=== PATIENT | female | born 2000 | race Caucasian/White ===

== ENCOUNTER → 2022-11-23 | Outpatient (CLI) | payer OTHER ==
[2022-11-23 15:50] LABS: HEMATOCRIT 41.3 % (36.0-47.0); HEMOGLOBIN 13.6 g/dl (12.0-15.5); MEAN CORPUSCULAR HEMOGLOBIN 28.3 pg (27.0-33.0); MEAN CORPUSCULAR HGB CONC 32.9 g/dl (32.0-36.5); PLATELET COUNT, AUTOMATED 304 10^3/uL (150-450); WHITE BLOOD COUNT 7.2 10^3/uL (4.0-10.0)
[2022-11-23 16:02] LABS: HEMOGLOBIN A1c 4.7 % (4.0-6.0)
[2022-11-23 16:21] LABS: VITAMIN B12 LEVEL 435 PG/ML (211-911)
[2022-11-23 16:51] LABS: HIV 1&2 SCREEN CENTAUR NEGATIVE (NEGATIVE)
[2022-11-23 16:59] LABS: HEPATITIS C VIRUS ABY INDEX 0.1 INDEX (<0.8)
[2022-11-23 17:27] LABS: GC DNA AMPLIFICATION NEGATIVE (NEGATIVE)
== END ==
LOC: M PLALAB 14:35
PROVIDERS: ATTEND Advanced Practice Midwife
DX: Z34.01 Encounter for supervision of normal first pregnancy, first trimester (principal)

== ENCOUNTER → 2022-12-21 | Outpatient (CLI) | payer OTHER | LOC: M PLALAB 13:44 | PROVIDERS: ATTEND Advanced Practice Midwife | DX: Z34.01 Encounter for supervision of normal first pregnancy, first trimester (principal) | CPT/HCPCS: 36415; G0463 ==

== ENCOUNTER 2023-02-13 12:12 | Emergency (ER) | payer OTHER ==
[~2023-02-13] VITALS: Ht 170.2 cm; Wt 104.7 kg
[2023-02-13 12:14] VITALS: BP 136/75; TEMP 98.4; O2SAT 98
[2023-02-13] MEDS ORDERED: MULTTAB20 PO (12:25)
[2023-02-13 13:21] LABS: BASO % 0.3 % (0.0-1.0); EOS # 0.1 10^3/uL (0.0-0.5); EOS % 0.8 % (0.0-3.0); HEMATOCRIT 38.7 % (36.0-47.0); HEMOGLOBIN 12.9 g/dl (12.0-15.5); LYMPH # 1.7 10^3/uL (1.5-5.0); LYMPH % 23.1 % (24.0-44.0); MEAN CORPUSCULAR HEMOGLOBIN 28.2 pg (27.0-33.0); MEAN CORPUSCULAR HGB CONC 33.3 g/dl (32.0-36.5); MEAN CORPUSCULAR VOLUME 84.5 fl (80.0-96.0); MONO # 0.5 10^3/uL (0.0-0.8); MONO % 6.6 % (2.0-8.0); NEUTROPHILS % 68.9 % (36.0-66.0); PLATELET COUNT, AUTOMATED 252 10^3/uL (150-450); RED BLOOD COUNT 4.58 10^6/uL (4.00-5.40); WHITE BLOOD COUNT 7.2 10^3/uL (4.0-10.0)
[2023-02-13 13:27] LABS: APPEARANCE, URINE MANUAL CLEAR (CLEAR); COLOR, URINE MANUAL YELLOW (YELLOW)
[2023-02-13 13:28] LABS: PH,URINE MAN 6.5 UNITS (5.0 - 7.0)
[2023-02-13 13:29] LABS: BILIRUBIN, URINE MANUAL NEGATIVE (NEGATIVE); BLOOD URINE MANUAL NEGATIVE (NEGATIVE); GLUCOSE, URINE (UA) MANUAL NEGATIVE (NEGATIVE); KETONE, URINE MANUAL NEGATIVE (NEGATIVE); LEUKOCYTE ESTERASE, URINE MAN NEGATIVE (NEGATIVE); NITRITE, URINE MANUAL NEGATIVE (NEGATIVE); PROTEIN, URINE MANUAL NEGATIVE (NEGATIVE); UROBILINOGEN, URINE MANUAL NORMAL (NORMAL)
[2023-02-13 13:55] LABS: ALBUMIN 3.4 G/DL (3.2-5.2); ALKALINE PHOSPHATASE 53 U/L (46-116); ALT/SGPT 11 U/L (7.0-40); AST/SGOT 10 U/L (<34); BILIRUBIN,DIRECT 0.1 MG/DL (<0.4); BILIRUBIN,TOTAL 0.5 MG/DL (0.3-1.2); BLOOD UREA NITROGEN 5 MG/DL (9-23); CALCIUM LEVEL 9.3 MG/DL (8.5-10.1); CARBON DIOXIDE LEVEL 23 MMOL/L (20-31); CHLORIDE LEVEL 106 MMOL/L (98-107); CREATININE FOR GFR 0.41 MG/DL (0.55-1.30); GLUCOSE, FASTING 75 MG/DL (60-100); SODIUM LEVEL 138 MMOL/L (136-145); TOTAL PROTEIN 6.7 G/DL (5.7-8.2)
== END 2023-02-13 15:53 | disposition home or self-care (01) ==
LOC: M ED 12:12
DX: O26.832 Pregnancy related renal disease, second trimester (principal); N13.30 Unspecified hydronephrosis; Z88.0 Allergy status to penicillin; Z98.84 Bariatric surgery status; Z3A.19 19 weeks gestation of pregnancy; Z79.810 Long term (current) use of selective estrogen receptor modulators (SERMs)

== ENCOUNTER → 2023-02-16 | Outpatient (CLI) | payer OTHER ==
[~2023-02-16] MED LIST: MULTTAB20 PO
== END ==
LOC: M WHC 15:03
PROVIDERS: ATTEND Advanced Practice Midwife
DX: Z34.02 Encounter for supervision of normal first pregnancy, second trimester (principal); Z3A.19 19 weeks gestation of pregnancy

== ENCOUNTER 2023-03-01 12:40 | Outpatient (CLI) | payer OTHER ==
[~2023-03-01] VITALS: Ht 170.2 cm; Wt 104.4 kg
[2023-03-01 12:59] VITALS: BP 132/59
[2023-03-01] MEDS ORDERED: HOME MED LIST COMPLETE! XX SCH (13:05)
[2023-03-01] MEDS ORDERED: LR 1,000 ML IV ONE (13:10)
[2023-03-01 14:00] LABS: AMORPHOUS SEDIMENT SMALL (NEGATIVE); APPEARANCE, URINE CLOUDY (CLEAR); BACTERIA, URINE AUTO 1+ (NEGATIVE); BILIRUBIN, URINE AUTO NEGATIVE (NEGATIVE); BLOOD, URINE BLOOD NEGATIVE (NEGATIVE); CALCIUM OXALATE CRYSTALS LARGE; COLOR, URINE AMBER (YELLOW); GLUCOSE, URINE (UA) AUTO NEGATIVE (NEGATIVE); KETONE, URINE AUTO 1+ mg/dL (NEGATIVE); LEUKOCYTE ESTERASE, URINE AUTO TRACE (NEGATIVE); MUCUS, URINE LARGE (NEGATIVE); NITRITE, URINE AUTO NEGATIVE (NEGATIVE); PROTEIN, URINE AUTO NEGATIVE (NEGATIVE); RBC, URINE AUTO 0 /HPF (0-3); SQUAMOUS EPITHELIAL CELL UR AU 5 /HPF (0-6); WBC, URINE AUTO 1 /HPF (0-3)
[2023-03-01 14:02] LABS: HEMATOCRIT 40.4 % (36.0-47.0); HEMOGLOBIN 13.6 g/dl (12.0-15.5); MEAN CORPUSCULAR HEMOGLOBIN 28.8 pg (27.0-33.0); MEAN CORPUSCULAR HGB CONC 33.7 g/dl (32.0-36.5); MEAN CORPUSCULAR VOLUME 85.4 fl (80.0-96.0); PLATELET COUNT, AUTOMATED 246 10^3/uL (150-450); RED BLOOD COUNT 4.73 10^6/uL (4.00-5.40); WHITE BLOOD COUNT 7.3 10^3/uL (4.0-10.0)
[2023-03-01 14:27] LABS: AMYLASE 61 U/L (30-118)
[2023-03-01 14:38] VITALS: BP 137/58
[2023-03-01 14:42] LABS: ALBUMIN 3.7 G/DL (3.2-5.2); ALKALINE PHOSPHATASE 55 U/L (46-116); ALT/SGPT 14 U/L (7.0-40); AST/SGOT 55 U/L (<34); BILIRUBIN,TOTAL 0.5 MG/DL (0.3-1.2); BLOOD UREA NITROGEN 5 MG/DL (9-23); CARBON DIOXIDE LEVEL 23 MMOL/L (20-31); CHLORIDE LEVEL 104 MMOL/L (98-107); CREATININE FOR GFR 0.47 MG/DL (0.55-1.30); GLUCOSE, FASTING 71 MG/DL (60-100); LIPASE 35 U/L (12-53); POTASSIUM SERUM 5.6 MMOL/L (3.5-5.1); SODIUM LEVEL 135 MMOL/L (136-145); TOTAL PROTEIN 7.3 G/DL (5.7-8.2)
[2023-03-01] MEDS ORDERED: ONDA4TAB6 PO (16:38)
== END 2023-03-01 16:43 | disposition home or self-care (01) ==
LOC: M LDO 12:40
PROVIDERS: ATTEND Obstetrics & Gynecology
DX: O21.8 Other vomiting complicating pregnancy (principal); O26.892 Other specified pregnancy related conditions, second trimester; R10.10 Upper abdominal pain, unspecified; Z3A.21 21 weeks gestation of pregnancy
CPT/HCPCS: 80053; 81001; 82150; 83690; 85027; G0463

== ENCOUNTER → 2023-04-07 | Outpatient (CLI) | payer OTHER ==
[~2023-04-07] MED LIST changes: +ONDA4TAB6 PO
[2023-04-07 18:33] LABS: HEMATOCRIT 38.6 % (36.0-47.0); HEMOGLOBIN 12.5 g/dl (12.0-15.5); MEAN CORPUSCULAR HEMOGLOBIN 28.7 pg (27.0-33.0); MEAN CORPUSCULAR HGB CONC 32.4 g/dl (32.0-36.5); MEAN CORPUSCULAR VOLUME 88.5 fl (80.0-96.0); PLATELET COUNT, AUTOMATED 266 10^3/uL (150-450); RED BLOOD COUNT 4.36 10^6/uL (4.00-5.40); WHITE BLOOD COUNT 8.8 10^3/uL (4.0-10.0)
[2023-04-07 19:52] LABS: GC DNA AMPLIFICATION NEGATIVE (NEGATIVE)
== END ==
LOC: M PLALAB 12:06
PROVIDERS: ATTEND Advanced Practice Midwife
DX: Z34.82 Encounter for supervision of other normal pregnancy, second trimester (principal)

== ENCOUNTER → 2023-04-14 | Outpatient (CLI) | payer OTHER | LOC: M WHC 14:56 | PROVIDERS: ATTEND Advanced Practice Midwife | DX: Z34.82 Encounter for supervision of other normal pregnancy, second trimester (principal) ==

== ENCOUNTER → 2023-05-20 | Outpatient (CLI) | payer OTHER | LOC: M WHC 11:59 | PROVIDERS: ATTEND Advanced Practice Midwife | DX: Z34.82 Encounter for supervision of other normal pregnancy, second trimester (principal); Z3A.00 Weeks of gestation of pregnancy not specified ==

== ENCOUNTER → 2023-06-14 | Outpatient (REF) | payer OTHER | LOC: M SFHCWAGY 13:05 | PROVIDERS: ATTEND Advanced Practice Midwife | DX: Z34.03 Encounter for supervision of normal first pregnancy, third trimester (principal) ==

== ENCOUNTER 2023-07-01 18:09 | Outpatient (CLI) | payer OTHER ==
[~2023-07-01] VITALS: Ht 167.6 cm; Wt 114.8 kg
[2023-07-01 18:25] VITALS: BP 117/62
[2023-07-01] MEDS ORDERED: HOME MED LIST COMPLETE! XX SCH (18:30)
== END 2023-07-01 19:10 | disposition home or self-care (01) ==
LOC: M LDO 18:09
PROVIDERS: ATTEND Advanced Practice Midwife
DX: O36.8130 Decreased fetal movements, third trimester, not applicable or unspecified (principal); Z3A.38 38 weeks gestation of pregnancy; Z88.0 Allergy status to penicillin; O99.843 Bariatric surgery status complicating pregnancy, third trimester
CPT/HCPCS: 59025; G0463

== ENCOUNTER 2023-07-04 15:15 | Inpatient (IN) | payer OTHER ==
[~2023-07-04] VITALS: Ht 170.2 cm; Wt 115.2 kg
[2023-07-04] VITALS (30 sets, daily range): BP systolic 104–156; BP diastolic 55–98
[2023-07-04] MEDS ORDERED: HOME MED LIST COMPLETE! XX SCH (16:25)
[2023-07-04] MEDS ORDERED: LACTATED RINGER'S 1000 ML IV STA (18:41)
[2023-07-04] MEDS ORDERED: METHYLERGONOVINE MALEATE 0.2MG/ML 1ML VIAL IM PRN (18:45)
[2023-07-04] MEDS ORDERED: TRANEXAMIC ACID INJection 1,000 MG in NS 100 ML IV PRN (18:45)
[2023-07-04] MEDS ORDERED: CARBOPROST TROMETHAMINE 250 MCG/ML AMP IM PRN (18:45)
[2023-07-04] MEDS ORDERED: LIDOCAINE 1% MDV 20ML VIAL INFIL PRN (18:45)
[2023-07-04] MEDS ORDERED: OXYTOCIN DRIP 30 UNITS in IV 1 EA IV PRN (18:45)
[2023-07-04] MEDS ORDERED: OXYTOCIN INJ 10UNITS/ML 1ML VIAL IM PRN (18:45)
[2023-07-04] MEDS ORDERED: ceFAZolin SOD 2 GM in IV 1 EA IV STA (18:53)
[2023-07-04 19:54] LABS: HEMOGLOBIN 13.2 g/dl (12.0-15.5); MEAN CORPUSCULAR HEMOGLOBIN 28.8 pg (27.0-33.0); MEAN CORPUSCULAR HGB CONC 33.8 g/dl (32.0-36.5); PLATELET COUNT, AUTOMATED 222 10^3/uL (150-450); RED BLOOD COUNT 4.59 10^6/uL (4.00-5.40); WHITE BLOOD COUNT 14.2 10^3/uL (4.0-10.0)
[2023-07-04] MEDS ORDERED: FENTANYL/ROPIVACAINE/NACL BAG 100 ML EPIDURAL SCH (20:10)
[2023-07-04] MEDS ORDERED: EPIDURAL/PCA KEYS XX PRN (20:10)
[2023-07-04] MEDS ORDERED: ONDANSETRON 4MG 2ML VIAL IV PRN (20:10)
[2023-07-04] MEDS ORDERED: LR 500 ML IV PRN (20:10)
[2023-07-04] MEDS ORDERED: NALOXONE INJ 0.4MG/1ML VIAL IV PRN (20:10)
[2023-07-04] MEDS ORDERED: diphenhydrAMINE 50MG/ML VIAL IV PRN (20:10)
[2023-07-04 20:20] LABS: URIC ACID 3.9 MG/DL (3.1-7.8)
[2023-07-04 20:22] LABS: LDH LACTATE DEHYDROGENASE 171 U/L (120-246)
[2023-07-04 20:23] LABS: ALT/SGPT 10 U/L (7.0-40); AST/SGOT 18 U/L (<34); BILIRUBIN,TOTAL 0.4 MG/DL (0.3-1.2)
[2023-07-04] MEDS ORDERED: OXYTOCIN DRIP 30 UNITS in IV 1 EA IV SCH (22:05)
[2023-07-04] MEDS ORDERED: LR 1,000 ML IV SCH (22:05)
[2023-07-04] MEDS: ePHEDrine SULFATE 25 MG/5 ML(5MG/ML) SYRINGE IVP PRN ×2 (22:51→22:57)
[2023-07-05] VITALS (17 sets, daily range): BP systolic 103–148; BP diastolic 57–86; TEMP 97.5; O2SAT 95–99
[2023-07-05] MEDS ORDERED: ceFAZolin SOD 2 GM in IV 1 EA IV ONE (00:35)
[2023-07-05] MEDS ORDERED: MORPHINE PRES-FREE INJ 10 MG/10 ML VIAL As Ordered ONE (00:39)
[2023-07-05] MEDS ORDERED: LIDOCAINE 2% W/EPINEPHRINE 20ML VIAL **PRES FREE As Ordered ONE (00:40)
[2023-07-05] MEDS ORDERED: OXYTOCIN 30UNITS IN 0.9% NaCl 500ML IV BAG As Ordered ONE ×2 (00:41→02:04)
[2023-07-05] MEDS ORDERED: AZITHROMYCIN INJ 500 MG, VIAL MATE ADAPTER 1 EACH in NS 250 ML IV ONE (01:00)
[2023-07-05] MEDS ORDERED: BICITRA 30ML SOLN UDC PO ONE (01:00)
[2023-07-05] MEDS ORDERED: fentaNYL 100 MCG/2 ML INJECTION As Ordered ONE (01:37)
[2023-07-05] MEDS ORDERED: KETAMINE HCL 200MG/20ML VIAL As Ordered ONE (01:37)
[2023-07-05] MEDS ORDERED: MIDAZOLAM INJ 2MG/2ML VIAL As Ordered ONE (01:37)
[2023-07-05] MEDS ORDERED: ONDANSETRON 4MG 2ML VIAL As Ordered ONE (01:50)
[2023-07-05] MEDS ORDERED: ACETAMINOPHEN 1000MG 100ML IV BAG As Ordered ONE (01:58)
[2023-07-05] MEDS ORDERED: KETOROLAC 60MG 2ML VIAL As Ordered ONE (01:58)
[2023-07-05 02:04] LABS: CORD GAS ABE V -8.3; CORD GAS HCO3 V 19.2 MMOL/L; CORD GAS O2 SAT V 57.4 %; CORD GAS PCO2 V 46.9 mmHg; CORD GAS PH V 7.23 UNITS; CORD GAS PO2 V 27.3 mmHg; CORD GAS TCO2 V 20.6 MMOL/L
[2023-07-05 02:06] LABS: CORD GAS ABE A -7.1; CORD GAS HCO3 A 21.9 MMOL/L; CORD GAS O2 SAT A 18.5 %; CORD GAS PCO2 A 58.4 mmHg; CORD GAS PH A 7.191 UNITS; CORD GAS PO2 A 12.9 mmHg; CORD GAS SBC A 17.1 MMOL/L; CORD GAS TCO2 A 23.6 MMOL/L
[2023-07-05] MEDS ORDERED: propofoL 200 MG/20 ML VIAL As Ordered ONE (02:11)
[2023-07-05] MEDS ORDERED: SIMETHICONE 80MG CHEW TAB PO PRN (03:15)
[2023-07-05] MEDS ORDERED: oxyCODONE 5MG TAB PO PRN ×2 (03:15)
[2023-07-05] MEDS ORDERED: RHOGAM 300MCG (1500IU) INJ IM SCH (03:15)
[2023-07-05] MEDS ORDERED: OXYTOCIN DRIP 30 UNITS in IV 1 EA IV SCH (03:15)
[2023-07-05] MEDS ORDERED: DOCUSATE SODIUM 100MG CAPSULE PO PRN (03:15)
[2023-07-05] MEDS ORDERED: ceFAZolin SOD 1 GM in D5W MINI-BAG PLUS 50 ML IV SCH (03:40)
[2023-07-05] MEDS: KETOROLAC 30 MG/ML 1ML VIAL IV SCH ×3 (07:31→20:01)
[2023-07-05] MEDS: ACETAMINOPHEN 500 MG TAB PO SCH ×3 (07:31→20:02)
[2023-07-05] MEDS: PRENATAL VITAMINS CHEWABLE TABLET PO SCH (07:32)
[2023-07-05] MEDS ORDERED: COLA100C5 PO (08:37)
[2023-07-05] MEDS ORDERED: ACET-683 PO (08:37)
[2023-07-05] MEDS ORDERED: OXYC-517 PO (08:37)
[2023-07-06 02:00] VITALS: BP 135/74; O2SAT 99
[2023-07-06] MEDS: IBUPROFEN 600MG TAB PO SCH ×4 (03:24→23:24)
[2023-07-06] MEDS: ACETAMINOPHEN 500 MG TAB PO SCH ×4 (03:24→19:58)
[2023-07-06 06:00] VITALS: BP 127/77; O2SAT 98
[2023-07-06 06:41] LABS: HEMATOCRIT 32.6 % (36.0-47.0); MEAN CORPUSCULAR HEMOGLOBIN 29.3 pg (27.0-33.0); PLATELET COUNT, AUTOMATED 181 10^3/uL (150-450); RED BLOOD COUNT 3.79 10^6/uL (4.00-5.40); WHITE BLOOD COUNT 11.4 10^3/uL (4.0-10.0)
[2023-07-06 06:46] LABS: HEMOGLOBIN 11.1 g/dl (12.0-15.5)
[2023-07-06] MEDS: PRENATAL VITAMINS CHEWABLE TABLET PO SCH (07:43)
[2023-07-06 10:00] VITALS: BP 128/71; O2SAT 100
[2023-07-06 14:00] VITALS: BP 125/76; O2SAT 98
[2023-07-06 18:00] VITALS: BP 119/63; O2SAT 98
[2023-07-06 22:00] VITALS: BP 126/57; O2SAT 100
[2023-07-07] MEDS: ACETAMINOPHEN 500 MG TAB PO SCH ×3 (01:56→14:00)
[2023-07-07 02:00] VITALS: BP 123/73; O2SAT 99
[2023-07-07] MEDS: IBUPROFEN 600MG TAB PO SCH ×3 (04:21→15:49)
[2023-07-07 06:00] VITALS: BP 136/66; O2SAT 97
[2023-07-07] MEDS: PRENATAL VITAMINS CHEWABLE TABLET PO SCH (08:59)
[2023-07-07] MEDS ORDERED: MEASLES,MUMPS,RUBELLA VACCINE INJ (MMR-II) SC.IMMUN ONE (09:00)
== END 2023-07-07 16:33 | disposition home or self-care (01) | DRG 773 ==
LOC: M LDO 15:15 → M LDI 18:41 → M OBS 07-05 04:20
PROVIDERS: ADMIT Advanced Practice Midwife; ATTEND Advanced Practice Midwife
PROC: 10D00Z1 Extraction of Products of Conception, Low, Open Approach (ICD-10-PCS; principal; 2023-07-05 01:19)
DX: O76 Abnormality in fetal heart rate and rhythm complicating labor and delivery (principal); Z37.0 Single live birth; Z88.0 Allergy status to penicillin; O99.824 Streptococcus B carrier state complicating childbirth; O77.0 Labor and delivery complicated by meconium in amniotic fluid; O69.1XX0 Labor and delivery complicated by cord around neck, with compression, not applicable or unspecified; Z3A.39 39 weeks gestation of pregnancy